=== PATIENT | female | born 1990 | race African-American/Black ===

== ENCOUNTER 2017-03-12 10:29 | Emergency (ER) | payer OTHER ==
[2017-03-12 10:40] VITALS: BP 116/65; PULSE 69; TEMP 98.3; BMI 22.6
[2017-03-12] MEDS ORDERED: ACETAMINOPHEN 160 MG/5 ML 473ML BULK BOTTLE ONE (11:39)
--- NOTE | 2017-03-12 11:47 | PDOC ---
History of Present Illness - General Chief Complaint: Sore Throat Stated Complaint: THROAT PAIN Time Seen by Provider: 03/12/17 11:13 History Source: Patient Exam Limitations: No Limitations - History of Present Illness Initial Comments: 03/12/17 11:36 Patient here with complaints of sore throat pain started yesterday and worsened today. States is felt fevers and chills, and difficulty swallowing. No one at home is sick but twins had some mild runny nose last week. Has taken Tylenol with minimal resolved. Timing/Duration: unsure, 24 hours Severity: moderate Modifying Factors: improves with: cold therapy Associated Symptoms: reports: fever/chills, headaches, malaise Past History - Travel Traveled outside of the country in the last 30 days: No Close contact w/someone who was outside of country & ill: No - Past Medical History Allergies/Adverse Reactions: Allergies Allergy/AdvReac Type Severity Reaction Status Date / Time Penicillins AdvReac Verified 03/12/17 10:39 Home Medications: Ambulatory Orders Azithromycin [Zithromax -] 250 mg PO UTDICT #6 tab 03/12/17 - Psycho/Social/Smoking Cessation Hx Suicidal Ideation: No Smoking History: Never smoked Information on smoking cessation initiated: No Substance Use Type: Marijuana Review of Systems - Review of Systems Able to Perform ROS?: Yes Is the patient limited Estonian proficient: Yes Constitutional: Yes: Symptoms Reported, See HPI, Fever, Malaise HEENTM: Yes: Symptoms Reported, See HPI, Nose Congestion, Throat Pain, Throat Swelling, Difficulty Swallowing Respiratory: Yes: See HPI. No: Symptoms reported, Cough ABD/GI: No: Symptoms Reported All Other Systems: Reviewed and Negative *Physical Exam - Vital Signs Last Vital Signs Temp Pulse Resp BP Pulse Ox 98.3 F 69 18 116/65 100 03/12/17 10:33 03/12/17 10:33 03/12/17 10:33 03/12/17 10:33 03/12/17 10:33 - Physical Exam General Appearance: Yes: Nourished, Appropriately Dressed, Apparent Distress HEENT: positive: EOMI, CRESCENCIO, TMs Normal, Tonsillar Exudate (thick grayish white exudate bilateral tonsils with swelling, erythema, airway is patent), Tonsillar Erythema. 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, Fully Oriented, Alert, Normal Mood/ Affect, Normal Response, Motor Strength 11/26 Medical Decision Making - Medical Decision Making 03/12/17 11:38 Pharyngitis, we'll treat with Zithromax *DC/Admit/Observation/Transfer Diagnosis at time of Disposition: Pharyngitis Qualifiers: Pharyngitis/tonsillitis etiology: unspecified etiology Qualified Code(s): J02.9 - Acute pharyngitis, unspecified - Discharge Dispostion Disposition: HOME Condition at time of disposition: Stable Admit: No - Patient Instructions Printed Discharge Instructions: DI for Pharyngitis/Tonsillopharyngitis -- Adult Additional Instructions: Rest, drink lots of fluids: Teas, water, soups Eat cold things: Ice cream, ice pops, ice chips Saltwater gargles Steamy showers/seem to face break up mucus Avoid contact with others until fevers and pain resolved Lots of handwashing and good hygiene, this is contagious Azithromycin as directed Tylenol or Motrin for fever and pain Followup with private physician in one to 2 days as needed if not improving Return to emergency department for worsened symptoms, fevers, dehydration
== END 2017-03-12 11:47 | disposition home or self-care (01) ==
LOC: JERFT 10:29 → JER 10:29 → JERFT 11:47
DX: J02.9 Acute pharyngitis, unspecified (principal)
CPT/HCPCS: 99281-25

== ENCOUNTER 2017-11-15 13:06 | Emergency (ER) | payer SELFPAY ==
[2017-11-15 13:21] VITALS: BP 119/72; PULSE 67; TEMP 98.3; BMI 20.9
--- NOTE | 2017-11-15 14:39 | PDOC ---
History of Present Illness - General Chief Complaint: Weakness Stated Complaint: SYNCOPE/NEAR SYNCOPE Time Seen by Provider: 11/15/17 13:36 History Source: Patient - History of Present Illness Timing/Duration: 1-3 hours Associated Symptoms: denies: chest pain, nausea/vomiting, shortness of breath Past History - Past Medical History Allergies/Adverse Reactions: Allergies Allergy/AdvReac Type Severity Reaction Status Date / Time Penicillins AdvReac Verified 11/15/17 13:16 Home Medications: Ambulatory Orders NK [No Known Home Medication] 11/15/17 CVA: No COPD: No DVT: No - Immunization History Immunization Up to Date: Yes - Suicide/Smoking/Psychosocial Hx Smoking History: Never smoked Have you smoked in the past 12 months: No Information on smoking cessation initiated: No Hx Alcohol Use: No Drug/Substance Use Hx: Yes (MARIJUANA) Substance Use Type: Marijuana Review of Systems - Review of Systems Constitutional: No: Chills, Fever Respiratory: No: Shortness of Breath Cardiac (ROS): Yes: Lightheadedness. No: Chest Pain, Palpitations, Syncope ABD/GI: No: Nausea, Vomiting Neurological: No: Headache, Dizziness *Physical Exam - Vital Signs Last Vital Signs Temp Pulse Resp BP Pulse Ox 98.3 F 67 18 119/72 100 11/15/17 13:17 11/15/17 13:17 11/15/17 13:17 11/15/17 13:17 11/15/17 13:17 - Physical Exam General Appearance: Yes: Appropriately Dressed. No: Apparent Distress HEENT: positive: Normal Voice Neck: positive: Supple Respiratory/Chest: positive: Lungs Clear, Normal Breath Sounds. negative: Respiratory Distress Cardiovascular: positive: Regular Rate, S1, S2 Integumentary: positive: Dry, Warm Neurologic: positive: Fully Oriented, Alert, Normal Mood/Affect Heart Score/ECG Review - ECG Intrepretation Comment:: 11/15/17 14:39 Twelve-lead EKG was performed and reviewed by me. There is normal sinus rhythm with a normal rate. The axis is normal. The intervals are normal. There are no ST or T wave abnormalities. Impression: Normal twelve-lead EKG ED Treatment Course - ADDITIONAL ORDERS Additional order review: Laboratory Results 11/15/17 11/15/17 14:02 13:53 POC Glucometer [id number] Urine HCG, Qual Negative 11/15/17 14:02 POC Glucometer [id number] Medical Decision Making - Medical Decision Making 11/15/17 14:34 27-year-old female, denies any past medical history, here with near syncope while at work today. 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 Is concerned she might be because last time she had similar issues she was per patient. DEnies WHYTE, visual changes, CP, SOB or palpitations. See exam Near syncope today No cp/sob Stable w/ unremarkable exam -FS -upreg -EKG 11/15/17 14:37 Fingerstick 122. Upreg negative and EKG unremarkable. Patient asymptomatic at this time and stable for discharge to follow up with PMD. Reasons to return to ED discussed with patient. *DC/Admit/Observation/Transfer Diagnosis at time of Disposition: Near syncope - Discharge Dispostion Disposition: HOME Condition at time of disposition: Improved - Referrals - Patient Instructions Printed Discharge Instructions: Fainting Additional Instructions: The cause of your symptoms could possibly be due to temporary drop in blood pressure. If symptoms recur, return to ER, otherwise follow-up with your PMD for further evaluation - Post Discharge Activity Forms/Work/School Notes: Back to Work
--- NOTE | 2017-11-16 12:06 | EKG ---
Test Reason : Blood Pressure : / mmHG Vent. Rate : 064 BPM Atrial Rate : 064 BPM P-R Int : 176 ms QRS Dur : 082 ms QT Int : 426 ms P-R-T Axes : 028 075 056 degrees QTc Int : 439 ms NORMAL SINUS RHYTHM NORMAL ECG NO PREVIOUS ECGS AVAILABLE Confirmed by SONIA SANTOS, ABDIRAHMAN ([id number]) on 11/16/2017 12:06:17 PM Referred By: Confirmed By:ABDIRAHMAN SCOTT MD
== END 2017-11-15 14:40 | disposition home or self-care (01) ==
LOC: JERFT 13:06
DX: R55 Syncope and collapse (principal)
CPT/HCPCS: 82962; 84703; 93005; 93010; 99281-25

== ENCOUNTER 2024-09-09 05:27 | Emergency (ER) | payer OTHER ==
[2024-09-09 05:54] VITALS: BP 130/88; PULSE 88; RESP 18; TEMP 98.1; BMI 29.0
[2024-09-09] MEDS ORDERED: DIPHTH,PERTUSS(ACELL),TET 0.5 ML DISP.SYRIN IM ONE (05:57)
[2024-09-09] MEDS: DIPHTH,PERTUSS(ACELL),TET 0.5 ML DISP.SYRIN IM ONE (06:01)
[2024-09-09] MEDS: BACITRACIN ZINC 15 GM TUBE TOPICAL OINTMENT TP ONE (06:43)
== END 2024-09-09 07:25 | disposition home or self-care (01) ==
LOC: JER 05:27
PROC: 3E0234Z Introduction of Serum, Toxoid and Vaccine into Muscle, Percutaneous Approach (ICD-10-PCS; principal; 2024-09-09)
DX: S91.112A Laceration without foreign body of left great toe without damage to nail, initial encounter (principal); Z23 Encounter for immunization; W25.XXXA Contact with sharp glass, initial encounter
CPT/HCPCS: 73630-TC-LT; 73630-TC-RT-FY; 90471; 90715; 99284-25